=== PATIENT | female | born 1965 | race Caucasian/White ===

== ENCOUNTER 2023-04-14 12:05 | Emergency (ER) | payer BC, SELFPAY ==
[2023-04-14 12:08] VITALS: BP 150/84; PULSE 76; RESP 20; TEMP 36.6; O2SAT 98; BMI 34.2
--- NOTE | 2023-04-14 12:13 | ED_ITS ---
HPI - Chest Pain General Chief Complaint: Chest Pain Stated Complaint: CHEST PAIN Time Seen by Provider: 04/14/23 12:13 History of Present Illness HPI narrative: The patient presented to us with pain that is retrosternal started while she was sitting between is not radiating although it is related to standing up and movement. There was no fever no chills no coughing no difficulty breathing and no relation to taking a deep breath, was induced by moving the left arm against resistance The patient also denies any smoking cigarettes and she also have no family history of coronary artery disease Related Data Previous Rx's Medication Instructions Recorded acetaminophen 650 mg 650 mg PO Q8H PRN pain #20 tabs 04/14/23 tablet,extended release (Tylenol 8 Hour) famotidine 20 mg tablet (Pepcid) 20 mg PO BID #10 tabs 04/14/23 prednisone 20 mg tablet 40 mg PO DAILY 4 days #8 tabs 04/14/23 Allergies Allergy/AdvReac Type Severity Reaction Status Date / Time No Known Drug Allergies Allergy Verified 04/14/23 12:17 Review of Systems ROS Status of ROS 10 or more systems reviewed and unremarkable except as noted in history and below [facility] Social History Smoking status: Never smoker Exam Narrative Exam Narrative: Nurses notes and vital signs reviewed and patient is not hypoxic. General: Well-appearing and in no apparent distress. Skin: Warm, dry, no pallor noted. No rash. Head: Normocephalic, atraumatic. Neck: Supple, non-tender. Eye: Pupils are equal, round and EOMI. No scleral icterus. Ears, Nose, Mouth, and Throat: TM are clear, no nasal mucosal hypertrophy. Oral mucosa is moist, no posterior oropharynx erythema, uvula is mid-line Cardiovascular: Regular Rate and Rhythm without murmur, gallop or rub. Respiratory: No accessory muscle use or respiratory distress. Lungs are clear to auscultation, no wheezing, rales or rhonchi Chest Wall: tenderness with palpation of the lower sternum ,The patient also had tenderness induced with the abduction of the left arm against resistance Back: No midline thoracic or lumbar vertebral tenderness. No CVA tenderness Musculoskeletal: normal ROM, no calf or popliteal tenderness, no lower extremity edema/swelling GI: Abdomen is soft, non-distended. Normal bowel sounds. No masses appreciated. No tenderness to palpation. No rebound, guarding, or rigidity noted. Neurological: A&O x4. No cranial nerve dysfunction observed. No truncal ataxia. Moves all extremities. Sensation intact. Psychiatric: Cooperative and interactive. Normal mood and affect. Constitutional Vital Signs, click to edit/add: Last Vital Signs Temp 97.8 F 04/14/23 12:08 Pulse 76 04/14/23 12:08 Resp 20 04/14/23 12:08 BP 150/86 H 04/14/23 16:35 Pulse Ox 98 04/14/23 12:08 O2 Del Method Room Air 04/14/23 12:08 Course Vital Signs Vital signs: Vital Signs Temperature 97.8 F 04/14/23 12:08 Pulse Rate 76 04/14/23 12:08 Respiratory Rate 20 04/14/23 12:08 Blood Pressure 150/84 H 04/14/23 12:08 Pulse Oximetry 98 04/14/23 12:08 Oxygen Delivery Method Room Air 04/14/23 12:08 Temperature 97.8 F 04/14/23 12:08 Pulse Rate 76 04/14/23 12:08 Respiratory Rate 20 04/14/23 12:08 Blood Pressure 150/86 H 04/14/23 16:35 Pulse Oximetry 98 04/14/23 12:08 Oxygen Delivery Method Room Air 04/14/23 12:08 MDM - Chest Pain MDM Narrative Medical decision making narrative: The patient EKG was showing sinus rhythm with no ST elevation or depression CBC and chemistry shows no acute pathology and the troponin was repeated twice as showing no trending up The patient chest x-ray also showed no acute pathology Patient pain responded to Toradol in the Emergency Room and right now she'll be discharged home with prednisone as well as Pepcid The patient did note is mostly pericarditis or costochondritis and she was instructed about monitoring his symptoms she is to come back and continue symptoms The patient is to followup with primary care physician in next 2-3 days or to return to the emergency department should any of the signs or symptoms worsen or new symptoms develop. The patient agrees with the following Diagnosis and Treatment plan and the patient will be discharged home. I did explain to the patient that in case of recurring pain she is to come back to the Emergency Room she also was instructed on the importance of monitoring her symptoms and follow-up with her primary care doctor for further evaluation of coronary artery disease in case of recurring pain with a stress test Lab Data Labs: Lab Results 04/14/23 04/14/23 04/14/23 Range/Units 12:25 13:57 15:04 WBC 8.9 (4.0-11.0) 10^3/uL RBC 4.74 (4.20-5.40) 10^6/uL Hgb 14.8 (12.0-16.0) g/dL Hct 43.9 (36.0-48.0) % MCV 92.6 (81.0-99.0) fL MCH 31.2 (26.7-34.0) pg MCHC 33.7 (29.9-35.2) g/dL RDW 12.5 (11.0-15.0) % Plt Count 332 (150-450) 10^3/uL MPV 8.7 L (9.5-13.5) fL Neut % (Auto) 61.2 (43.0-75.0) % Lymph % (Auto) 28.8 (20.5-60.0) % [place] % (Auto) 6.5 (1.7-12.0) % Eos % (Auto) 2.6 (0.9-7.0) % Baso % (Auto) 0.6 (0.2-2.0) % Neut # (Auto) 5.4 (1.4-6.5) 10^3/uL Lymph # (Auto) 2.6 (1.2-3.8) 10^3/uL [place] # (Auto) 0.6 (0.3-0.8) 10^3/uL Eos # (Auto) 0.2 (0.0-0.7) 10^3/uL Baso # (Auto) 0.1 (0.0-0.1) 10^3/uL Abs Immat Gran (auto) 0.03 (0.00-0.03) 10^3/uL Imm/Tot Granulo (auto) 0.3 (0.0-0.5) % PT 10.1 (9.0-11.6) sec INR 0.95 APTT 26.2 (22.3-36.2) sec Sodium 138 (136-145) mmol/L Potassium 3.9 (3.5-5.1) mmol/L Chloride 103 (98-107) mmol/L Carbon Dioxide 24.3 (21.0-32.0) mmol/L Anion Gap 14.6 BUN 17.0 (7.0-18.0) mg/dL Creatinine 1.10 H (0.55-1.02) mg/dL Est GFR ( Amer) >60 (>=60) Est GFR (Non-Af Amer) 51 L (>=60) BUN/Creatinine Ratio 15.5 Glucose 91 (74-106) mg/dL Calcium 9.3 (8.5-10.1) mg/dL Total Bilirubin 0.7 (0.2-1.0) mg/dL AST 18 (15-37) U/L ALT 33 (14-59) U/L Alkaline Phosphatase 111 (46-116) U/L Troponin I High Sens <4.0 L 4.3 <4.0 L (4.0-51.3) pg/mL Total Protein 8.0 (6.4-8.2) g/dL Albumin 3.9 (3.4-5.0) g/dL Globulin 4.1 g/dL Albumin/Globulin Ratio 1.0 Discharge Plan Discharge Chief Complaint: Chest Pain Clinical Impression: Atypical chest pain, Acute costochondritis Patient Disposition: Home, Self-Care Time of Disposition Decision: 16:24 Condition: Good Mode of Transportation: Private Vehicle Prescriptions / Home Meds: New prednisone 20 mg tablet 40 mg PO DAILY 4 Days Qty: 8 0RF acetaminophen [Tylenol 8 Hour] 650 mg tablet extended release 650 mg PO Q8H PRN (Reason: pain) Qty: 20 0RF famotidine [Pepcid] 20 mg tablet 20 mg PO BID Qty: 10 0RF Instructions: Chest Pain (ED), Costochondritis (ED) Stand Alone Forms: Portal Instructions Referrals: Physician,Non-Staff, MD [Primary Care Provider] - 1 week Discharge Date/Time: 04/14/23 16:41
--- NOTE | 2023-04-14 12:19 | ECG_ITS ---
[facility] Test Date: 2023-04-14 Pat Name: LEVAR URBINA Department: Room: - Gender: Female [employer]st: : 1965 Requested By: [id number] Order Number: [id number] Reading MD: PREM ZAMUDIO Measurements Intervals [place] Rate: 77 P: 26 VT: 164 QRS: 15 QRSD: 80 T: 23 QT: 384 QTc: 416 Interpretive Statements 1100 Sinus rhythm 8102 Low QRS voltage in chest leads 9150 abnormal ECG No previous ECG available for comparison Electronically Signed On 04-15-2023 7:10:22 EDT by PREM ZAMUDIO
--- NOTE | 2023-04-14 12:19 | XR_ITS ---
The [address] [address] Patient Name: LEVAR URBINA MRN: [id number] date: 1965 Sex: F Assigned Patient Location: ER Current Patient Location: ER Accession/Order Number: [id number] Exam Date: 04/14/2023 12:35 Report Date: 04/14/2023 12:58 At the request of: DEVI HUMPHRIES Procedure: XR chest 1V EXAM: XR chest 1V HISTORY: CP COMPARISON: None. TECHNIQUE: AP view of the chest FINDINGS: There is no focal airspace consolidation. Mildly prominent cardiac silhouette, which may be exacerbated secondary to AP technique. No evidence of pleural effusion or pneumothorax are identified. No acute osseous abnormality. XR/XR chest 1V IMPRESSION: No acute cardiopulmonary process. Electronically authenticated by: PRINCE GARCIA Date: 04/14/2023 12:58
[2023-04-14] MEDS: FAMOTIDINE/PF 20 MG/2 ML VIAL IV (12:32)
[2023-04-14] MEDS: KETOROLAC TROMETHAMINE 30 MG/ML VIAL 15 MG IVP (12:32)
[2023-04-14 12:44] LABS: Basophils Absolute Auto 0.1 10^3/uL (0.0-0.1); Basophils Percent Auto 0.6 % (0.2-2.0); Eosinophils Absolute Auto 0.2 10^3/uL (0.0-0.7); Eosinophils Percent Auto 2.6 % (0.9-7.0); Hematocrit 43.9 % (36.0-48.0); Hemoglobin 14.8 g/dL (12.0-16.0); Immature Granulocytes Abs Auto 0.03 10^3/uL (0.00-0.03); Immature Granulocytes Pct Auto 0.3 % (0.0-0.5); Lymphocytes Absolute Auto 2.6 10^3/uL (1.2-3.8); Lymphocytes Percent Auto 28.8 % (20.5-60.0); Mean Corpuscular HGB Conc 33.7 g/dL (29.9-35.2); Mean Corpuscular Hemoglobin 31.2 pg (26.7-34.0); Mean Corpuscular Volume 92.6 fL (81.0-99.0); Mean Platelet Volume 8.7 fL (9.5-13.5); Monocytes Absolute Auto 0.6 10^3/uL (0.3-0.8); Monocytes Percent Auto 6.5 % (1.7-12.0); Neutrophils Absolute Auto 5.4 10^3/uL (1.4-6.5); Neutrophils Percent Auto 61.2 % (43.0-75.0); Platelet Count 332 10^3/uL (150-450); Red Blood Count 4.74 10^6/uL (4.20-5.40); Red Cell Distribution Width 12.5 % (11.0-15.0); White Blood Count 8.9 10^3/uL (4.0-11.0)
[2023-04-14 12:57] LABS: INR 0.95; Partial Thromboplastin Time 26.2 sec (22.3-36.2); Prothrombin Time 10.1 sec (9.0-11.6)
[2023-04-14 13:11] LABS: Alanine Aminotransferase 33 U/L (14-59); Albumin Level 3.9 g/dL (3.4-5.0); Alkaline Phosphatase 111 U/L (46-116); Anion Gap 14.6; Aspartate Amino Transferase 18 U/L (15-37); BUN Creatinine Ratio 15.5; Bilirubin Total 0.7 mg/dL (0.2-1.0); Calcium 9.3 mg/dL (8.5-10.1); Carbon Dioxide 24.3 mmol/L (21.0-32.0); Chloride 103 mmol/L (98-107); Estimated GFR (African America >60 (>=60); Estimated GFR (Non-African Ame 51 (>=60); Globulin 4.1 g/dL; Glucose 91 mg/dL (74-106); Potassium 3.9 mmol/L (3.5-5.1); Sodium 138 mmol/L (136-145); Troponin I High Sensitivity <4.0 pg/mL (4.0-51.3)
[2023-04-14 14:37] LABS: Troponin I High Sensitivity 4.3 pg/mL (4.0-51.3)
[2023-04-14 15:28] LABS: Troponin I High Sensitivity <4.0 pg/mL (4.0-51.3)
[2023-04-14 16:35] VITALS: BP 150/86
== END 2023-04-14 16:41 | disposition home or self-care (01) ==
PROVIDERS: Emergency Provider Emergency Medicine
DX: M94.0 Chondrocostal junction syndrome [Tietze] (principal); R07.89 Other chest pain
CPT/HCPCS: 36415; 71045; 80053; 84484; 85025; 85610; 85730; 93005; 96374; 96375; 99285